=== PATIENT | female | born 1950 | race African-American/Black ===

== ENCOUNTER 2024-03-21 11:11 | Emergency (ER) | payer OTHER ==
[~2024-03-21] VITALS: Ht 165.1 cm; Wt 117.4 kg
[2024-03-21 12:01] LABS: Basophils # (auto) 0 10 ^3/uL (0-0.2); Basophils % (auto) 0.4 % (0.0-2.0); Eosinophils # (auto) 0.4 10 ^3/uL (0-0.8); Eosinophils % (auto) 4.6 % (0.0-7.0); Hemoglobin 10.5 g/dL (12.2-16.2); Lymphocytes # (auto) 2.3 10 ^3/uL (0.4-5.4); Lymphocytes % (auto) 27.9 % (10.0-50.0); Monocytes # (auto) 0.7 10 ^3/uL (0-1.3); Neutrophils # (auto) 4.8 10 ^3/uL (1.6-8.6); Red Cell Distribution Width 15.7 % (11.8-14.3)
[2024-03-21 12:03] LABS: Hematocrit 32.6 % (36.0-46.0); Mean Corpuscular Hemoglobin 26.7 pg (28.0-32.0); Mean Corpuscular Hgb Conc. 32.2 g/dL (32.0-36.0); Mean Corpuscular Volume 82.8 fL (80.0-100.0); Monocytes % (auto) 8.2 % (0.0-12.0); Neutrophils % (auto) 58.9 % (37.0-80.0); Nucleated Red Blood Cells % 0.1 %; Red Blood Cells 3.93 10^6/uL (4.0-5.20); White Blood Cell 8.1 10^3/uL (4.4-10.8)
[2024-03-21 12:18] LABS: Alanine Aminotransferase 29 U/L (7-40); Albumin 4.1 g/dL (3.2-4.8); Alkaline Phosphatase 123 U/L (46-116); Anion Gap 7 (5-15); Aspartate Aminotransferase 16 U/L (13-40); BUN/Creatinine Ratio 18.3 (10.0-20.0); Bilirubin, Total 0.4 mg/dL (0.2-1.0); Blood Urea Nitrogen 50 mg/dL (9-23); Calcium 9.1 mg/dL (8.5-10.1); Carbon Dioxide 21 mmol/L (20-30); Chloride 115 mmol/L (98-107); Glucose 92 mg/dL (74-106); Potassium 5.3 mmol/L (3.5-5.1); Sodium 143 mmol/L (136-145); Total Protein 6.6 g/dL (5.7-8.2)
[2024-03-21] MEDS: methylPREDNISolone SOD SUCC 125 MG/2 ML VL IV ONE ×2 (14:02→19:48)
[2024-03-21] MEDS: diphenhdrAMINE HCL 50 MG/1 ML VL IV ONE ×2 (14:02→19:47)
[2024-03-21] MEDS: FAMOTIDINE (10MG/ML) 2ML VL IV ONE ×2 (14:03→19:47)
[2024-03-21 16:41] LABS: Rapid Strep A Screen-Throat Negative
[2024-03-21] MEDS: DexAMETHasone SOD PHOS 10MG/1ML VIAL INJ IV ONE (17:23)
[2024-03-21 19:35] VITALS: PULSE 101; RESP 20; O2SAT 97
[2024-03-21 21:47] LABS: COVID19 ANTIGEN SOFIA FIA NEGATIVE (NEGATIVE)
[2024-03-21 23:20] VITALS: BP 184/94; PULSE 98; RESP 20; TEMP 97.9; O2SAT 97
== END 2024-03-22 00:45 | disposition left against medical advice (07) ==
LOC: ER 11:11
DX: T78.40XA Allergy, unspecified, initial encounter (principal); K12.2 Cellulitis and abscess of mouth; I10 Essential (primary) hypertension; E11.9 Type 2 diabetes mellitus without complications; Z90.710 Acquired absence of both cervix and uterus; Z20.822 Contact with and (suspected) exposure to COVID-19; Z86.73 Personal history of transient ischemic attack (TIA), and cerebral infarction without residual deficits; X58.XXXA Exposure to other specified factors, initial encounter
CPT/HCPCS: 36415; 70360; 70490; 71045; 80053; 84484; 85025; 87070; 87426; 87880; 96374; 96375; 96376; 99285; J1100; J1200; J2919; J3490; 99291